=== PATIENT | male | born 1995 | race Caucasian/White ===

== ENCOUNTER 2018-11-05 20:16 | Emergency (ER) | payer MEDICAID ==
[~2018-11-05] VITALS: Ht 182.9 cm; Wt 67.2 kg
[2018-11-05] MEDS ORDERED: cloNIDine HCL 0.1 MG TAB PO ONE ×2 (21:00)
[2018-11-05] MEDS ORDERED: ONDANSETRON HCL 4 MG/2 ML VIAL IV ONE (21:00)
[2018-11-05] MEDS ORDERED: ACETAMINOPHEN 325 MG TAB PO ONE ×2 (21:00)
[2018-11-05 21:17] LABS: Basophils # (auto) 0.1 uL; Basophils % (auto) 1.2 % (0.0-2.0); Eosinophils # (auto) 0.3 uL; Eosinophils % (auto) 6.7 % (0.0-7.0); Hematocrit 41.4 % (41.0-53.0); Hemoglobin 14.1 g/dL (13.5-17.5); Lymphocytes # (auto) 1.5 uL; Lymphocytes % (auto) 31.6 % (10.0-50.0); Mean Corpuscular Hemoglobin 29.7 pg (28.0-32.0); Mean Corpuscular Volume 87.4 fL (80.0-100.0); Monocytes # (auto) 0.5 uL; Monocytes % (auto) 11.2 % (0.0-12.0); Neutrophils # (auto) 2.3 uL; Neutrophils % (auto) 49.3 % (37.0-80.0); Nucleated Red Blood Cells % 0.2 %; Platelet Count (auto) 182 10^3/uL (140-450); Red Blood Cells 4.74 10^6/uL (4.5-5.90); Red Cell Distribution Width 14.3 % (11.8-14.3); White Blood Cell 4.7 10^3/uL (4.4-10.8)
[2018-11-05] MEDS ORDERED: LABETALOL HCL 5 MG/ML ML 20ML VIAL IV ONE (21:30)
[2018-11-05 21:36] LABS: Alanine Aminotransferase 11 U/L (16-61); Albumin 3.9 g/dL (3.4-5.0); Anion Gap 10 (5-15); Blood Urea Nitrogen 18 mg/dL (7-18); Carbon Dioxide 28 mmol/L (21-32); Chloride 102 mmol/L (98-107); Glucose 98 mg/dL (74-106); Magnesium 2.4 mg/dL (1.6-2.6); Potassium 3.8 mmol/L (3.5-5.1); Sodium 140 mmol/L (136-145)
[2018-11-05 21:41] LABS: Alkaline Phosphatase 139 U/L (45-117); Aspartate Aminotransferase 13 U/L (15-37); BUN/Creatinine Ratio 2.9; Bilirubin, Total 0.6 mg/dL (0.2-1.0); GFR African American 15 mL/min; GFR Non-African American 12 mL/min; Total Protein 7.3 g/dL (6.4-8.2)
[2018-11-05 21:44] LABS: INR 1.12 (0.9-1.15); Partial Thromboplastin Time 35.1 sec (23.64-32.05)
[2018-11-05] MEDS ORDERED: MORPHINE SULFATE 4 MG/ML SYR/VIAL IV ONE (22:45)
[2018-11-05] MEDS ORDERED: PIPERACILLIN-TAZOB 3.375GM 100 ML IV ONE (22:45)
[2018-11-05] MEDS ORDERED: PROMETHAZINE HCL 25 MG/ML 1ML IV ONE (23:00)
[2018-11-06] MEDS ORDERED: hydrALAZINE HCL 20 MG/ML VL IV ONE
[2018-11-06 00:37] VITALS: BP 155/94
== END 2018-11-06 00:53 | disposition short-term general hospital (02) ==
LOC: ER 20:18
DX: I16.0 Hypertensive urgency (principal); K35.80 Unspecified acute appendicitis; G40.909 Epilepsy, unspecified, not intractable, without status epilepticus; E11.22 Type 2 diabetes mellitus with diabetic chronic kidney disease; I12.0 Hypertensive chronic kidney disease with stage 5 chronic kidney disease or end stage renal disease; N18.6 End stage renal disease; Z99.2 Dependence on renal dialysis; Z88.5 Allergy status to narcotic agent; Z88.8 Allergy status to other drugs, medicaments and biological substances; Z86.73 Personal history of transient ischemic attack (TIA), and cerebral infarction without residual deficits
CPT/HCPCS: 36415; 70450; 71045; 74176; 80053; 83735; 83880; 84484; 85025; 85610; 85730; 87040; 93005; 94761; 96365; 96375; 99285; J0360; J2270; J2405; J2543; J2550

== ENCOUNTER 2018-11-15 06:46 | Inpatient (IN) | payer MEDICAID ==
[~2018-11-15] VITALS: Ht 182.9 cm; Wt 67.2 kg
[2018-11-15] MEDS ORDERED: MORPHINE SULFATE 4 MG/ML SYR/VIAL IV ONE (07:30)
[2018-11-15] MEDS ORDERED: hydrALAZINE HCL 20 MG/ML VL IV ONE (07:30)
[2018-11-15] MEDS ORDERED: ONDANSETRON HCL 4 MG/2 ML VIAL ONE (07:56)
[2018-11-15] MEDS ORDERED: ONDANSETRON HCL 4 MG/2 ML VIAL IV ONE (08:00)
[2018-11-15 08:18] LABS: Basophils # (auto) 0.1 uL; Basophils % (auto) 2.2 % (0.0-2.0); Eosinophils # (auto) 0.5 uL; Eosinophils % (auto) 11.7 % (0.0-7.0); Hematocrit 42.3 % (41.0-53.0); Hemoglobin 13.9 g/dL (13.5-17.5); Lymphocytes # (auto) 1.4 uL; Lymphocytes % (auto) 32.8 % (10.0-50.0); Mean Corpuscular Hemoglobin 29.1 pg (28.0-32.0); Mean Corpuscular Hgb Conc. 32.9 g/dL (32.0-36.0); Mean Corpuscular Volume 88.5 fL (80.0-100.0); Monocytes # (auto) 0.4 uL; Monocytes % (auto) 10.2 % (0.0-12.0); Neutrophils # (auto) 1.9 uL; Neutrophils % (auto) 43.1 % (37.0-80.0); Nucleated Red Blood Cells % 0.2 %; Platelet Count (auto) 140 10^3/uL (140-450); Red Blood Cells 4.78 10^6/uL (4.5-5.90); Red Cell Distribution Width 13.5 % (11.8-14.3); White Blood Cell 4.3 10^3/uL (4.4-10.8)
[2018-11-15 08:42] LABS: Albumin 3.9 g/dL (3.4-5.0); Anion Gap 9 (5-15); Blood Urea Nitrogen 18 mg/dL (7-18); Calcium 8.2 mg/dL (8.5-10.1); Carbon Dioxide 25 mmol/L (21-32); Chloride 106 mmol/L (98-107); Glucose 102 mg/dL (74-106); Magnesium 2.3 mg/dL (1.6-2.6); Potassium 4.2 mmol/L (3.5-5.1); Sodium 140 mmol/L (136-145)
[2018-11-15 08:44] LABS: Alanine Aminotransferase 15 U/L (16-61); Aspartate Aminotransferase 15 U/L (15-37); BUN/Creatinine Ratio 2.8; GFR African American 14 mL/min; GFR Non-African American 12 mL/min
[2018-11-15 08:46] LABS: Alkaline Phosphatase 110 U/L (45-117); Bilirubin, Total 0.5 mg/dL (0.2-1.0); Total Protein 7.1 g/dL (6.4-8.2)
[2018-11-15 09:02] LABS: INR 1.04 (0.9-1.15)
[2018-11-15] MEDS ORDERED: LABETALOL HCL 5 MG/ML ML 20ML VIAL IV ONE (10:15)
[2018-11-15] MEDS ORDERED: LABETALOL HCL 200 MG TAB PO ONE (10:15)
[2018-11-15] MEDS ORDERED: LACTULOSE 20Gm/30ML SOLN PO PRN (10:15)
[2018-11-15] MEDS ORDERED: TEMAZEPAM 15 MG CAP PO PRN (10:15)
[2018-11-15] MEDS ORDERED: traMADol HCL 50 MG TAB PO PRN (10:15)
[2018-11-15] MEDS ORDERED: MORPHINE SULF INJ 2 MG/ML SYRINGE 1ML IV PRN (10:15)
[2018-11-15] MEDS ORDERED: PROMETHAZINE HCL 25 MG/ML 1ML IV PRN (10:15)
[2018-11-15] MEDS ORDERED: ACETAMINOPHEN 500 MG TAB PO PRN (10:15)
[2018-11-15] MEDS ORDERED: NITROGLYCERIN 0.4 MG SL TAB SL PRN (10:15)
[2018-11-15] MEDS ORDERED: FUROSEMIDE 40 MG/4 ML VIAL IV ONE (10:15)
--- NOTE | 2018-11-15 11:01 | NUR ---
[facility] after SBAR received. Patient oriented to BOBBY FOX,primary RN AND CANDE ANDRES SECONDARY RN PRECEPTING AMARA ROSALES UNIT ROOM 286A, and unit policies regarding patient care and visiting hours. Patient weighed by bedscale and encouraged to call if they need something. All questions and concerns addressed, patient verbalized understanding. FAMILY AT BEDSIDE. Addendum: 11/15/18 at 1552 by BOBBY FOX RN RN CORRECTED UNIT ARRIVAL TIME- 12:03 NOT 11:01
[2018-11-15] MEDS ORDERED: TOPI50TA53 PO (11:06)
[2018-11-15] MEDS ORDERED: TACR1GRA PO (11:06)
[2018-11-15] MEDS ORDERED: NIFE90TA30 PO (11:06)
[2018-11-15] MEDS ORDERED: FOLI1TAB6 PO (11:06)
[2018-11-15] MEDS ORDERED: PANT40TA2 PO (11:06)
[2018-11-15] MEDS ORDERED: PRE5T PO (11:06)
[2018-11-15] MEDS ORDERED: LABE200T18 PO (11:06)
[2018-11-15] MEDS ORDERED: ACET250T3 PO (11:06)
[2018-11-15] MEDS ORDERED: GABA300C10 PO (11:06)
[2018-11-15] MEDS ORDERED: SPIR50TA5 PO (11:06)
[2018-11-15] MEDS ORDERED: MAGN400T5 PO (11:06)
[2018-11-15] MEDS ORDERED: MIN25T PO (11:06)
[2018-11-15] MEDS ORDERED: LOSA-69 PO (11:06)
[2018-11-15] MEDS ORDERED: ISOS20TA56 PO (11:06)
[2018-11-15] MEDS ORDERED: KETOROLAC TROMETH 30 MG/ML 1ML VIAL IV ONE (11:15)
[2018-11-15] MEDS ORDERED: LOSARTAN POTASSIUM 50 MG TAB PO ONE (11:45)
[2018-11-15] MEDS ORDERED: FOLIC ACID 1 MG TAB PO ONE (11:45)
[2018-11-15] MEDS ORDERED: MINOXIDIL 2.5 MG TAB PO ONE (11:45)
[2018-11-15] MEDS ORDERED: GABAPENTIN 300 MG CAP PO ONE (11:45)
[2018-11-15] MEDS ORDERED: PANTOPRAZOLE 40 MG TAB PO ONE (11:45)
[2018-11-15] MEDS ORDERED: TOPIRAMATE 25 MG TAB PO ONE (11:45)
[2018-11-15] MEDS ORDERED: predniSONE 5 MG TAB PO ONE (11:45)
[2018-11-15] MEDS ORDERED: NIFEdipine ER 30 MG TAB PO ONE (11:45)
[2018-11-15 12:25] VITALS: BP 196/124
[2018-11-15] MEDS: MORPHINE SULFATE 4 MG/ML SYR/VIAL IV PRN ×3 (12:52→22:14)
[2018-11-15] MEDS: NIFEdipine ER 30 MG TAB PO SCH (12:56)
[2018-11-15] MEDS: TOPIRAMATE 25 MG TAB PO SCH ×2 (12:56→20:50)
[2018-11-15 13:34] VITALS: BP 169/99
[2018-11-15 13:35] VITALS: BP 138/79
[2018-11-15 13:44] VITALS: BP 169/99
[2018-11-15] MEDS ORDERED: LABETALOL HCL 200 MG TAB PO SCH ×2 (14:00→22:00)
[2018-11-15] MEDS: ISOSORBIDE DINITRATE 10 MG TAB PO SCH ×2 (14:23→20:49)
[2018-11-15] MEDS: LABETALOL HCL 200 MG TAB PO SCH ×3 (14:25→22:00)
[2018-11-15] MEDS: TACROLIMUS 1 MG CAP PO SCH ×2 (14:26→22:04)
[2018-11-15] MEDS: MAGNESIUM OXIDE 400 MG TAB PO SCH ×2 (14:29→20:51)
[2018-11-15] MEDS: SODIUM CHLOR 0.9% PF (SALINE LOCK) 10ML VIAL/SYR IV SCH ×2 (14:30→22:03)
[2018-11-15 16:59] VITALS: BP 122/69
--- NOTE | 2018-11-15 18:20 | NUR ---
CLOSING SHIFT NOTE: PATIENT RESTING IN BED. VS WNL. PATIENT C/O PAIN 10/20. WILL MEDICATE ORDERED. PATIENT HAS CALL LIGHT WITHIN REACH AND VERBALIZED UNDERSTANDING ON USE IF IN NEED OF ANY ASSISTANCE. PATIENT DID NOT EAT DINNER AND STATED 'MY MOM IS GOING TO BRING ME SUBWAY OR SOMETHING FOR DINNER TONIGHT." BED LOCKED AND IN LOWEST POSITION. PATIENT IS UPDATED ON PLAN OF CARE.
--- NOTE | 2018-11-15 19:27 | NUR ---
ENDORSED CARE TO SUSY SAINI RN
[2018-11-15] MEDS: PANTOPRAZOLE 40 MG TAB PO SCH (20:49)
[2018-11-15] MEDS: GABAPENTIN 300 MG CAP PO SCH (20:50)
[2018-11-15 22:00] VITALS: BP_SYST 110; BP_SYST 132; BP_DIAS 66; BP_DIAS 75
[2018-11-15] MEDS ORDERED: LOSARTAN POTASSIUM 50 MG TAB PO SCH (22:00)
[2018-11-15] MEDS ORDERED: MINOXIDIL 2.5 MG TAB PO SCH (22:00)
[2018-11-15] MEDS: acetaZOLAMIDE 250 MG TAB PO SCH (22:04)
--- NOTE | 2018-11-16 00:10 | NUR ---
PAGED HOSPITALIST FOR DONNA, PATIENT IS C/O ITCHING. AWAITING FOR CALL BACK.
[2018-11-16] MEDS ORDERED: diphenhdrAMINE HCL 25 MG CAP PO ONE (01:00)
[2018-11-16 04:44] VITALS: BP 138/77
[2018-11-16] MEDS: ISOSORBIDE DINITRATE 10 MG TAB PO SCH ×2 (05:58→15:54)
[2018-11-16] MEDS: LABETALOL HCL 200 MG TAB PO SCH ×2 (05:58→15:53)
[2018-11-16] MEDS: SODIUM CHLOR 0.9% PF (SALINE LOCK) 10ML VIAL/SYR IV SCH ×2 (06:04→14:52)
[2018-11-16] MEDS: MAGNESIUM OXIDE 400 MG TAB PO SCH ×2 (06:04→15:55)
--- NOTE | 2018-11-16 06:15 | NUR ---
SCHEDULE FOR DIALYSIS IS AT [address] [place] LAW CLERK.
[2018-11-16] MEDS ORDERED: SODIUM CHL 0.9% 1000 ML BAG XX ONE (07:00)
--- NOTE | 2018-11-16 07:45 | NUR ---
OPENING SHIFT NOTE: ENERGY ADVISOR AT BEDSIDE. CHARGE NURSE SUDHA TO MOVE PATIENT TO ROOM 293A FOR BETTER ACCESS/ SETUP FOR ENERGY ADVISOR. PATIENT RESTING IN BED. NO SIGNS OF DISTRESS NOTED. PATIENT REQUESTING JELLO. UPDATED ON PLAN OF CARE, AND WILL CONTINUE TO MONITOR.
[2018-11-16 09:00] VITALS: BP 150/89
--- NOTE | 2018-11-16 09:13 | NUR ---
SPOKE WITH RENAL NURSE REGARDING START TIME. PATIENT CURRENTLY NOT IN ROOM.
[2018-11-16 09:25] LABS: Albumin 3.6 g/dL (3.4-5.0); Potassium 4.4 mmol/L (3.5-5.1)
[2018-11-16 09:27] LABS: BUN/Creatinine Ratio 3.2
[2018-11-16 09:30] LABS: Bilirubin, Total 0.4 mg/dL (0.2-1.0); Total Protein 6.4 g/dL (6.4-8.2)
--- NOTE | 2018-11-16 09:30 | NUR ---
DR. NOÉ MALLOY.
--- NOTE | 2018-11-16 09:40 | NUR ---
PATIENT BACK IN ROOM AFTER AMBULATING IN THE HALLWAYS.
[2018-11-16] MEDS: GABAPENTIN 300 MG CAP PO SCH (09:55)
[2018-11-16] MEDS: acetaZOLAMIDE 250 MG TAB PO SCH (09:55)
[2018-11-16] MEDS: PANTOPRAZOLE 40 MG TAB PO SCH (09:55)
[2018-11-16] MEDS: MORPHINE SULFATE 4 MG/ML SYR/VIAL IV PRN ×2 (09:56→16:32)
[2018-11-16] MEDS: TOPIRAMATE 25 MG TAB PO SCH (09:56)
[2018-11-16] MEDS ORDERED: PANTOPRAZOLE 40 MG TAB PO SCH (10:00)
[2018-11-16] MEDS ORDERED: FOLIC ACID 1 MG TAB PO SCH (10:00)
[2018-11-16] MEDS ORDERED: predniSONE 5 MG TAB PO SCH (10:00)
[2018-11-16] MEDS: TACROLIMUS 1 MG CAP PO SCH (10:52)
[2018-11-16] MEDS ORDERED: diphenhdrAMINE HCL 50 MG/1 ML VL IV ONE (11:45)
--- NOTE | 2018-11-16 11:58 | NUR ---
HEPARIN GIVEN TO DIALYSIS NURSE ORDERED.
--- NOTE | 2018-11-16 12:07 | NUR ---
BENADRYL GIVEN TO SENIOR JAVA ENGINEER ORDERED.
[2018-11-16 13:00] VITALS: BP 159/86
--- NOTE | 2018-11-16 13:20 | NUR ---
DR. DALY AT BEDSIDE. OKAY TO REMOVED PRIOR JAMES OUT OF ABDOMEN. WILL FOLLOW ANY NEW ORDERS DIRECTED.
--- NOTE | 2018-11-16 13:36 | NUR ---
PAGED DR. UMANZOR'S OFFICE REGARDING PATIENTS BLOOD PRESSURE WHILE UNDERGOING DIALYSIS.
--- NOTE | 2018-11-16 13:40 | NUR ---
ELECTROMECHANICAL TECHNICIAN ABLE TO OBTAIN ORDERS REGARDING BLOOD PRESSSURE. WILL FOLLOW DIRECTED.
[2018-11-16] MEDS: MINOXIDIL 2.5 MG TAB PO SCH ×2 (13:43→13:51)
[2018-11-16] MEDS: NIFEdipine ER 30 MG TAB PO SCH (13:43)
[2018-11-16] MEDS: LOSARTAN POTASSIUM 50 MG TAB PO SCH ×2 (13:44→13:50)
--- NOTE | 2018-11-16 13:56 | NUR ---
CALL FROM DR. DALY REGARDING 1400 LABETALOL TO GIVE ORDERED AFTER DIALYSIS.
[2018-11-16 16:02] VITALS: BP 159/86
[2018-11-16 16:20] VITALS: BP 115/89
[2018-11-16 17:00] VITALS: BP 164/88
--- NOTE | 2018-11-16 18:26 | NUR ---
PATIENT DISCHARGED HOME WITH MOTHER AT BEDSIDE. PATIENT EDUCATED ON ALL DISCHARGE MEDICATIONS. HIGHLIGHTED AND CIRCLED BLOOD PRESSURE MEDICATIONS AND FREQUENCY. PATIENT AND MOTHER VERBALIZED UNDERSTANDING. DISCHARGE PACKET AND ALL EDUCATION GIVEN TO PATIENT. PATIENT LEFT WITH ALL BELONGINGS. IV REMOVED, CATHETER INTACT. PRESSURE APPLIED. TEGADERM WITH GAUZE APPLIED TO UMBILICAL STAPLE REMOVAL SITE. VS WNL AND DOCUMENTED IN THE EMR.
--- NOTE | 2018-11-16 18:28 | NUR ---
D/C planning Per SS consult for advance directive information. As requested information was provided to Pt at bed side.
[2018-11-16] MEDS ORDERED: LOSARTAN POTASSIUM 50 MG TAB PO SCH (22:00)
== END 2018-11-16 18:25 | disposition home or self-care (01) | DRG 466 ==
LOC: ER 06:50 → TELE 06:51 → TELE-WESTW 12:02
PROVIDERS: ADMIT Internal Medicine; ATTEND Hospitalist
PROC: 5A1D70Z Performance of Urinary Filtration, Intermittent, Less than 6 Hours Per Day (ICD-10-PCS; principal; 2018-11-16)
DX: T86.11 Kidney transplant rejection (principal); I13.2 Hypertensive heart and chronic kidney disease with heart failure and with stage 5 chronic kidney disease, or end stage renal disease; N17.9 Acute kidney failure, unspecified; I16.0 Hypertensive urgency; I50.9 Heart failure, unspecified; N18.6 End stage renal disease; Y83.0 Surgical operation with transplant of whole organ as the cause of abnormal reaction of the patient, or of later complication, without mention of misadventure at the time of the procedure; H54.61 Unqualified visual loss, right eye, normal vision left eye; F17.200 Nicotine dependence, unspecified, uncomplicated; G40.909 Epilepsy, unspecified, not intractable, without status epilepticus; Z86.73 Personal history of transient ischemic attack (TIA), and cerebral infarction without residual deficits; Y92.89 Other specified places as the place of occurrence of the external cause; Z80.9 Family history of malignant neoplasm, unspecified; Z90.5 Acquired absence of kidney; Z99.2 Dependence on renal dialysis; Z88.8 Allergy status to other drugs, medicaments and biological substances; Z90.49 Acquired absence of other specified parts of digestive tract
CPT/HCPCS: 36415; 71045; 80053; 82306; 82550; 83735; 83880; 83970; 84100; 84484; 85025; 85610; 85730; 90935; 93005; G0378; J1642; J1885; J2405; J7507

== ENCOUNTER 2019-03-22 21:42 | Inpatient (IN) | payer MEDICAID ==
[~2019-03-22] VITALS: Ht 182.9 cm; Wt 77.9 kg
[~2019-03-22 21:42] MED LIST: B-COTAB10 PO; FOLI1TAB6 PO; GABA300C10 PO; ISOS20TA56 PO; LABE200T18 PO; LOSA-69 PO; MIN25T PO; NIFE90TA49 PO; PANT40TA2 PO; PRE5T PO; SEVE800T8 PO; SPIR50TA2 PO; TOPI50TA32 PO
[2019-03-22] MEDS ORDERED: hydrALAZINE HCL 20 MG/ML VL IV ONE (23:30)
[2019-03-22] MEDS ORDERED: cloNIDine HCL 0.1 MG TAB PO ONE (23:30)
[2019-03-22] MEDS ORDERED: LABETALOL HCL 5 MG/ML 4ML SYRINGE IV ONE (23:30)
[2019-03-22] MEDS ORDERED: KETOROLAC TROMETH 30 MG/ML 1ML VIAL IV ONE (23:30)
[2019-03-22] MEDS ORDERED: ONDANSETRON HCL 4 MG/2 ML VIAL IV ONE (23:30)
[2019-03-22 23:31] LABS: Basophils # (auto) 0 uL; Basophils % (auto) 0.8 % (0.0-2.0); Eosinophils # (auto) 0.3 uL; Eosinophils % (auto) 7.6 % (0.0-7.0); Hematocrit 36.2 % (41.0-53.0); Hemoglobin 12.5 g/dL (13.5-17.5); Lymphocytes # (auto) 1.3 uL; Lymphocytes % (auto) 37.8 % (10.0-50.0); Mean Corpuscular Hemoglobin 29.2 pg (28.0-32.0); Mean Corpuscular Hgb Conc. 34.5 g/dL (32.0-36.0); Mean Corpuscular Volume 84.7 fL (80.0-100.0); Monocytes # (auto) 0.3 uL; Monocytes % (auto) 8.7 % (0.0-12.0); Neutrophils # (auto) 1.5 uL; Neutrophils % (auto) 45.1 % (37.0-80.0); Nucleated Red Blood Cells % 0.1 %; Platelet Count (auto) 213 10^3/uL (140-450); Red Blood Cells 4.28 10^6/uL (4.5-5.90); Red Cell Distribution Width 15.5 % (11.8-14.3); White Blood Cell 3.4 10^3/uL (4.4-10.8)
[2019-03-22 23:47] LABS: Alanine Aminotransferase 23 U/L (16-61); Albumin 3.6 g/dL (3.4-5.0); Anion Gap 6 (5-15); Aspartate Aminotransferase 23 U/L (15-37); BUN/Creatinine Ratio 3.2; Blood Urea Nitrogen 19 mg/dL (7-18); Calcium 8.8 mg/dL (8.5-10.1); Carbon Dioxide 28 mmol/L (21-32); Chloride 105 mmol/L (98-107); GFR African American 16 mL/min; GFR Non-African American 13 mL/min; Glucose 94 mg/dL (74-106); Potassium 4.4 mmol/L (3.5-5.1); Sodium 139 mmol/L (136-145)
[2019-03-22 23:53] LABS: Alkaline Phosphatase 93 U/L (45-117); Bilirubin, Total 0.5 mg/dL (0.2-1.0); Total Protein 7.6 g/dL (6.4-8.2)
[2019-03-23] MEDS ORDERED: LABETALOL HCL 5 MG/ML 4ML SYRINGE IV ONE (03:15)
[2019-03-23] MEDS ORDERED: hydrALAZINE HCL 20 MG/ML VL IV ONE (03:15)
[2019-03-23] MEDS ORDERED: cloNIDine HCL 0.1 MG TAB PO ONE (03:15)
[2019-03-23] MEDS ORDERED: ACETAMINOPHEN 325 MG TAB PO PRN (03:30)
[2019-03-23] MEDS ORDERED: MORPHINE SULFATE 4 MG/ML SYR/VIAL IV PRN (03:30)
[2019-03-23] MEDS ORDERED: ONDANSETRON HCL 4 MG/2 ML VIAL IV PRN (03:30)
[2019-03-23] MEDS ORDERED: hydrALAZINE HCL 25 MG TAB PO PRN (03:30)
[2019-03-23] MEDS ORDERED: HYDROcodone-ACET 5/325MG TAB PO PRN (03:30)
[2019-03-23] MEDS ORDERED: LORazepam 0.5 MG TAB PO PRN (03:30)
[2019-03-23] MEDS ORDERED: DOCUSATE SOD 100 MG CAP PO PRN (03:30)
--- NOTE | 2019-03-23 05:25 | NUR ---
Tele[facility] admit from [facility] admitted to Telemetry unit after SBAR received. Patient oriented to Shelly Morales,RN primary RN, unit, room, bed, and unit policies regarding patient care and visiting hours. Patient now on continuous telemetry monitoring, tele box #[id number] and telemetry reading on arrival to unit is NSR. Patient AAOx4, no acute S/S of distress or SOB noted. Pain to head /10. On room air and ambulatory. Seizure precautions in place, padding on bedside rails and suction working properly and at bedside. Patient weighed by bed scale and encouraged to call if they need something. All questions and concerns addressed, patient verbalized understanding. Bed in lowest locked position, side rails up x2, call light within reach. Will continue to monitor every hour and as needed.
[2019-03-23 05:50] VITALS: BP 149/88
--- NOTE | 2019-03-23 05:55 | NUR ---
[facility]SA SWAB SENT TO LAB
[2019-03-23] MEDS: ISOSORBIDE MONONITRATE IR 20 MG TAB PO SCH ×3 (06:03→21:07)
[2019-03-23] MEDS: PANTOPRAZOLE 40 MG TAB PO SCH (06:04)
[2019-03-23] MEDS: LABETALOL HCL 200 MG TAB PO SCH ×3 (06:04→21:08)
[2019-03-23] MEDS ORDERED: HYDR-531 PO (06:10)
[2019-03-23] MEDS ORDERED: MAGN400C2 PO (06:10)
[2019-03-23] MEDS ORDERED: DIPH25TA5 PO (06:10)
[2019-03-23] MEDS ORDERED: FERR1TAB17 PO (06:10)
--- NOTE | 2019-03-23 07:30 | NUR ---
Opening Shift Note Assuming care of patient at this time. Patient is resting in bed with his eyes closed. Patient shows no signs or symptoms of distress or shortness of breath. Bed is locked and lowered with side rails up x2. Will instruct patient on the plan of care for today and to call for assistance as needed. Call light within reach.
[2019-03-23] MEDS: SEVELAMER 800 MG TAB PO SCH ×3 (08:25→17:53)
[2019-03-23 08:51] VITALS: BP 126/64
[2019-03-23] MEDS: TOPIRAMATE 25 MG TAB PO SCH ×2 (09:58→21:09)
[2019-03-23] MEDS: GABAPENTIN 300 MG CAP PO SCH ×2 (09:58→21:08)
[2019-03-23] MEDS: SPIRONOLACTONE 25 MG TAB PO SCH ×2 (09:58→21:09)
[2019-03-23] MEDS: NIFEdipine ER 30 MG TAB PO SCH (09:59)
[2019-03-23] MEDS: FOLIC ACID 1 MG TAB PO SCH (10:00)
[2019-03-23] MEDS: LOSARTAN POTASSIUM 50 MG TAB PO SCH ×2 (10:00→21:09)
[2019-03-23] MEDS: MINOXIDIL 10 MG TAB PO SCH ×2 (10:00→21:09)
[2019-03-23 13:00] VITALS: BP 126/71
[2019-03-23 14:16] LABS: Basophils # (auto) 0 uL; Basophils % (auto) 0.8 % (0.0-2.0); Eosinophils # (auto) 0.3 uL; Eosinophils % (auto) 9.6 % (0.0-7.0); Hematocrit 33.6 % (41.0-53.0); Hemoglobin 11.3 g/dL (13.5-17.5); Lymphocytes # (auto) 1.2 uL; Lymphocytes % (auto) 37.2 % (10.0-50.0); Mean Corpuscular Hemoglobin 28.4 pg (28.0-32.0); Mean Corpuscular Hgb Conc. 33.5 g/dL (32.0-36.0); Mean Corpuscular Volume 84.9 fL (80.0-100.0); Monocytes # (auto) 0.4 uL; Monocytes % (auto) 10.9 % (0.0-12.0); Neutrophils # (auto) 1.4 uL; Neutrophils % (auto) 41.5 % (37.0-80.0); Nucleated Red Blood Cells % 0.1 %; Platelet Count (auto) 248 10^3/uL (140-450); Red Blood Cells 3.96 10^6/uL (4.5-5.90); Red Cell Distribution Width 15.5 % (11.8-14.3); White Blood Cell 3.3 10^3/uL (4.4-10.8)
[2019-03-23 14:28] LABS: BUN/Creatinine Ratio 3.9; Potassium 4.6 mmol/L (3.5-5.1)
[2019-03-23 16:46] VITALS: BP 132/68
--- NOTE | 2019-03-23 19:17 | NUR ---
Closing Shift Note Patient resting in bed. No distress noted. Report given. Will endorse care to the rn shift mgr RN.
[2019-03-23 21:46] VITALS: BP 148/68
--- NOTE | 2019-03-23 23:13 | NUR ---
PATIENT HAS ORDER FOR DISCHARGE TODAY, PATIENT UNABLE TO GO HOME TODAY DUE TO NO TRANSPORTATION TONIGHT. PATIENT VERBALIZED PREFERENCE TO GO HOME IN AM, DR. ZUNIGA AT BEDSIDE AND IS AWARE.
[2019-03-24 04:52] VITALS: BP 153/71
[2019-03-24] MEDS: ISOSORBIDE MONONITRATE IR 20 MG TAB PO SCH (05:50)
[2019-03-24] MEDS: LABETALOL HCL 200 MG TAB PO SCH (05:51)
[2019-03-24] MEDS: PANTOPRAZOLE 40 MG TAB PO SCH (05:51)
--- NOTE | 2019-03-24 07:30 | NUR ---
Opening Note Received report from film processing shift supervisor RN. Patient is resting in bed with eyes closed. No signs or symptoms of distress noted at this time. Patient is on room air, respirations even and unlabored. Bed in low and locked position, call light within reach. Will continue to monitor Q1 hour and PRN.
[2019-03-24] MEDS: SEVELAMER 800 MG TAB PO SCH ×2 (08:00→12:00)
[2019-03-24 09:00] VITALS: BP 151/88
[2019-03-24] MEDS: MINOXIDIL 10 MG TAB PO SCH (10:00)
[2019-03-24] MEDS: FOLIC ACID 1 MG TAB PO SCH (10:12)
[2019-03-24] MEDS: SPIRONOLACTONE 25 MG TAB PO SCH (10:12)
[2019-03-24] MEDS: LOSARTAN POTASSIUM 50 MG TAB PO SCH (10:12)
[2019-03-24] MEDS: GABAPENTIN 300 MG CAP PO SCH (10:12)
[2019-03-24] MEDS: TOPIRAMATE 25 MG TAB PO SCH (10:12)
[2019-03-24] MEDS: NIFEdipine ER 30 MG TAB PO SCH (10:13)
[2019-03-24 10:30] VITALS: BP 151/88
[2019-03-24 13:00] VITALS: BP 157/85
--- NOTE | 2019-03-24 13:25 | NUR ---
Discharge Discharge instructions given as ordered. Encourage to follow up with PMD as instructed. All questions and concerns addressed. Patient verbalized understanding. Medication reconciliation form completed and copy given to patient. IV removed, catheter intact, pressure dressing applied. Telemetry unit returned to ICU. Patient refused wheelchair, patient ambulated to personal vehicle with all personal belongings, accompanied by family. No signs or symptoms of distress noted at this time.
--- NOTE | 2019-03-25 10:58 | NUR ---
Cement Crusher Operator- No call or paged received regarding this consult for frequent admissions. Patient is already discharged; unable to refer to the SWII for review.
== END 2019-03-24 13:25 | disposition home or self-care (01) | DRG 199 ==
LOC: EDBD 21:42 → ER 21:42 → TELE 21:43 → TELE-WESTW 03-23 05:23
PROVIDERS: ADMIT Hospitalist; ATTEND Hospitalist
DX: I16.1 Hypertensive emergency (principal); T86.11 Kidney transplant rejection; N18.6 End stage renal disease; N25.81 Secondary hyperparathyroidism of renal origin; I12.0 Hypertensive chronic kidney disease with stage 5 chronic kidney disease or end stage renal disease; G40.909 Epilepsy, unspecified, not intractable, without status epilepticus; D72.819 Decreased white blood cell count, unspecified; Y83.8 Other surgical procedures as the cause of abnormal reaction of the patient, or of later complication, without mention of misadventure at the time of the procedure; D63.8 Anemia in other chronic diseases classified elsewhere; Z82.49 Family history of ischemic heart disease and other diseases of the circulatory system; Z86.73 Personal history of transient ischemic attack (TIA), and cerebral infarction without residual deficits; Z99.2 Dependence on renal dialysis; Z80.3 Family history of malignant neoplasm of breast; Y83.0 Surgical operation with transplant of whole organ as the cause of abnormal reaction of the patient, or of later complication, without mention of misadventure at the time of the procedure
CPT/HCPCS: 36415; 80048; 80053; 83880; 84484; 85025; 87081; 93005; 96374; 96375; G0378; J1885; J2405

== ENCOUNTER 2019-04-29 22:55 | Inpatient (IN) | payer MEDICAID ==
[~2019-04-29] VITALS: Ht 182.9 cm; Wt 68.9 kg
[~2019-04-29 22:55] MED LIST changes: -B-COTAB10 PO; +DIPH25TA5 PO; +FERR1TAB17 PO; +HYDR-531 PO; +MAGN400C2 PO; -PANT40TA2 PO; -SPIR50TA2 PO
[2019-04-29] MEDS ORDERED: LABETALOL HCL 5 MG/ML 4ML SYRINGE IV ONE (23:30)
[2019-04-29 23:48] LABS: Basophils # (auto) 0 uL; Basophils % (auto) 1.4 % (0.0-2.0); Eosinophils # (auto) 0.1 uL; Eosinophils % (auto) 4.1 % (0.0-7.0); Hematocrit 33.3 % (41.0-53.0); Hemoglobin 11.3 g/dL (13.5-17.5); Lymphocytes # (auto) 0.7 uL; Lymphocytes % (auto) 28.7 % (10.0-50.0); Mean Corpuscular Hemoglobin 28.8 pg (28.0-32.0); Mean Corpuscular Hgb Conc. 33.8 g/dL (32.0-36.0); Mean Corpuscular Volume 85.2 fL (80.0-100.0); Monocytes # (auto) 0.3 uL; Neutrophils # (auto) 1.4 uL; Neutrophils % (auto) 54.8 % (37.0-80.0); Nucleated Red Blood Cells % 0.4 %; Platelet Count (auto) 151 10^3/uL (140-450); Red Blood Cells 3.91 10^6/uL (4.5-5.90); Red Cell Distribution Width 15.9 % (11.8-14.3); White Blood Cell 2.5 10^3/uL (4.4-10.8)
[2019-04-30 00:06] LABS: Albumin 3.5 g/dL (3.4-5.0); BUN/Creatinine Ratio 2.9; Calcium 8.3 mg/dL (8.5-10.1); Potassium 4.3 mmol/L (3.5-5.1)
[2019-04-30 00:13] LABS: Bilirubin, Total 0.8 mg/dL (0.2-1.0); INR 1.22 (0.9-1.15); Partial Thromboplastin Time 29.4 sec (23.64-32.05); Total Protein 7.1 g/dL (6.4-8.2)
[2019-04-30] MEDS ORDERED: LABETALOL HCL 5 MG/ML 4ML SYRINGE IV ONE (00:45)
[2019-04-30] MEDS ORDERED: MORPHINE SULFATE 4 MG/ML SYR/VIAL IV ONE (02:15)
[2019-04-30] MEDS ORDERED: ONDANSETRON HCL 4 MG/2 ML VIAL IV ONE (02:15)
[2019-04-30] MEDS: NICARDIPINE 25MG/250ML BAG KIT 250 ML IV SCH ×2 (02:18→06:15)
[2019-04-30] MEDS ORDERED: ACETAMINOPHEN 325 MG TAB PO PRN (03:00)
[2019-04-30] MEDS ORDERED: TEMAZEPAM 15 MG CAP PO PRN (03:00)
[2019-04-30] MEDS ORDERED: MORPHINE SULF INJ 2 MG/ML SYRINGE 1ML IV PRN (03:00)
[2019-04-30] MEDS ORDERED: ONDANSETRON HCL 4 MG/2 ML VIAL IV PRN (03:00)
[2019-04-30] MEDS ORDERED: NITROGLYCERIN 0.4 MG SL TAB SL PRN (03:00)
[2019-04-30] MEDS: ISOSORBIDE DINITRATE 10 MG TAB PO SCH ×3 (05:18→17:41)
[2019-04-30] MEDS ORDERED: LABETALOL HCL 200 MG TAB PO SCH ×2 (06:00→22:00)
[2019-04-30] MEDS ORDERED: traMADol HCL 50 MG TAB PO PRN (08:45)
[2019-04-30] MEDS: SEVELAMER 800 MG TAB PO SCH ×3 (09:02→17:41)
[2019-04-30] MEDS ORDERED: TACROLIMUS 1 MG CAP PO SCH (10:00)
[2019-04-30] MEDS ORDERED: PANTOPRAZOLE 40 MG TAB PO SCH (10:00)
[2019-04-30] MEDS ORDERED: LOSARTAN POTASSIUM 50 MG TAB PO SCH (10:00)
[2019-04-30] MEDS ORDERED: TOPIRAMATE 25 MG TAB PO SCH (10:00)
[2019-04-30] MEDS ORDERED: MAGNESIUM OXIDE 400 MG TAB PO SCH (10:00)
[2019-04-30] MEDS ORDERED: predniSONE 5 MG TAB PO SCH (10:00)
[2019-04-30 11:00] VITALS: BP 153/96
[2019-04-30 13:00] VITALS: BP 152/79
[2019-04-30] MEDS ORDERED: NIFEdipine ER 30 MG TAB PO ONE (14:15)
[2019-04-30 17:00] VITALS: BP 180/116
[2019-04-30] MEDS ORDERED: LABETALOL HCL 5 MG/ML 4ML SYRINGE IV PRN (17:15)
[2019-05-01] MEDS ORDERED: SODIUM CHL 0.9% 1000 ML BAG XX ONE (07:00)
[2019-05-01] MEDS ORDERED: NIFEdipine ER 30 MG TAB PO SCH (10:00)
== END 2019-04-30 19:15 | disposition home or self-care (01) | DRG 199 ==
LOC: EDBD 22:55 → ER 22:57 → OVERFLOW 22:58 → TELE-WESTW 04-30 11:33
PROVIDERS: ADMIT Nurse Practitioner; ATTEND Internal Medicine
PROC: 02HV33Z Insertion of Infusion Device into Superior Vena Cava, Percutaneous Approach (ICD-10-PCS; principal; 2019-04-29)
DX: I16.0 Hypertensive urgency (principal); I50.42 Chronic combined systolic (congestive) and diastolic (congestive) heart failure; N18.6 End stage renal disease; G40.909 Epilepsy, unspecified, not intractable, without status epilepticus; D72.819 Decreased white blood cell count, unspecified; I13.2 Hypertensive heart and chronic kidney disease with heart failure and with stage 5 chronic kidney disease, or end stage renal disease; D63.1 Anemia in chronic kidney disease; Z99.2 Dependence on renal dialysis; Z94.0 Kidney transplant status; Z80.3 Family history of malignant neoplasm of breast; Z86.73 Personal history of transient ischemic attack (TIA), and cerebral infarction without residual deficits; Z79.899 Other long term (current) drug therapy; Z88.8 Allergy status to other drugs, medicaments and biological substances; Z91.048 Other nonmedicinal substance allergy status; Z90.49 Acquired absence of other specified parts of digestive tract
CPT/HCPCS: 36415; 71045; 80053; 80320; 83880; 84484; 85025; 85610; 85730; 87081; 93005; 96374; 96375; 96376; 99291; G0378; J2405; J3490; J7507

== ENCOUNTER → 2019-09-19 | Emergency (ER) | payer MEDICAID ==
[~2019-09-19] VITALS: Ht 195.6 cm; Wt 65.8 kg
[~2019-09-19] MED LIST changes: +ACET250T3 PO; +ACETAMINOPHEN 325 MG TAB PO ONE; +ACETAMINOPHEN 500 MG TAB PO ONE; +cefTRIAXone 1GM/50ML D5W 50 ML IV ONE; +cloNIDine HCL 0.1 MG TAB PO ONE
[2019-09-19 14:06] LABS: Basophils # (auto) 0 10 ^3/uL (0-0.2); Basophils % (auto) 0.3 % (0.0-2.0); Eosinophils # (auto) 0.3 10 ^3/uL (0-0.8); Eosinophils % (auto) 4.5 % (0.0-7.0); Hematocrit 32.2 % (41.0-53.0); Lymphocytes # (auto) 0.8 10 ^3/uL (0.4-5.4); Lymphocytes % (auto) 11.2 % (10.0-50.0); Mean Corpuscular Hemoglobin 29.1 pg (28.0-32.0); Mean Corpuscular Hgb Conc. 34.1 g/dL (32.0-36.0); Mean Corpuscular Volume 85.2 fL (80.0-100.0); Monocytes # (auto) 0.9 10 ^3/uL (0-1.3); Monocytes % (auto) 12.1 % (0.0-12.0); Neutrophils # (auto) 5.4 10 ^3/uL (1.6-8.6); Neutrophils % (auto) 71.9 % (37.0-80.0); Platelet Count (auto) 177 10^3/uL (140-450); Red Blood Cells 3.78 10^6/uL (4.5-5.90); Red Cell Distribution Width 15.7 % (11.8-14.3); White Blood Cell 7.5 10^3/uL (4.4-10.8)
[2019-09-19 14:29] LABS: Albumin 3.7 g/dL (3.4-5.0); Calcium 7.6 mg/dL (8.5-10.1); Potassium 4.1 mmol/L (3.5-5.1)
[2019-09-19 14:34] LABS: BUN/Creatinine Ratio 3.7; Bilirubin, Total 0.5 mg/dL (0.2-1.0); Total Protein 7.2 g/dL (6.4-8.2)
[2019-09-19 20:00] VITALS: BP 126/77
== END | disposition home or self-care (01) ==
LOC: EDUNIT# 13:00 → ER 13:20 → EDBD 13:20
DX: J02.0 Streptococcal pharyngitis (principal); R50.9 Fever, unspecified; I12.0 Hypertensive chronic kidney disease with stage 5 chronic kidney disease or end stage renal disease; N18.6 End stage renal disease; Z99.2 Dependence on renal dialysis; Z20.828 Contact with and (suspected) exposure to other viral communicable diseases; Z86.73 Personal history of transient ischemic attack (TIA), and cerebral infarction without residual deficits
CPT/HCPCS: 36415; 71045; 80053; 82728; 83605; 83880; 84484; 85025; 87040; 87804; 87880; 96365; 99284; C9803; J0696; U0003

== ENCOUNTER → 2019-11-01 | Emergency (ER) | payer MEDICAID ==
[~2019-11-01] VITALS: Ht 185.4 cm; Wt 68.0 kg
[~2019-11-01] MED LIST changes: -ACETAMINOPHEN 325 MG TAB PO ONE; -ACETAMINOPHEN 500 MG TAB PO ONE; +LIDOCAINE 2% (LOCAL ANESTH.) PF 5ml SDV ONE; -cefTRIAXone 1GM/50ML D5W 50 ML IV ONE; -cloNIDine HCL 0.1 MG TAB PO ONE; +levoFLOXacin 500 MG TAB PO ONE
[2019-11-01 15:35] VITALS: BP 160/118
== END | disposition home or self-care (01) ==
LOC: ER 13:32
DX: I12.0 Hypertensive chronic kidney disease with stage 5 chronic kidney disease or end stage renal disease (principal); N18.6 End stage renal disease; J18.9 Pneumonia, unspecified organism; Z99.2 Dependence on renal dialysis; Z86.73 Personal history of transient ischemic attack (TIA), and cerebral infarction without residual deficits
CPT/HCPCS: 71046; 99283; J2001

== ENCOUNTER 2020-01-17 18:34 | Emergency (ER) | payer MEDICAID ==
[~2020-01-17] VITALS: Ht 172.7 cm; Wt 74.8 kg
[~2020-01-17 18:34] MED LIST changes: -LIDOCAINE 2% (LOCAL ANESTH.) PF 5ml SDV ONE; -levoFLOXacin 500 MG TAB PO ONE
[2020-01-17] MEDS ORDERED: ONDANSETRON ODT 4 MG TAB PO ONE (22:15)
[2020-01-17] MEDS ORDERED: diphenhdrAMINE HCL 25 MG CAP PO ONE (22:30)
[2020-01-17] MEDS ORDERED: HYDROcodone-ACET 10/325MG TAB PO ONE (22:30)
[2020-01-18] MEDS ORDERED: IOHEXOL 300 MG/ML 100ML BOTTLE IJ ONE (00:11)
[2020-01-18] MEDS ORDERED: METOCLOPRAMIDE HCL 10 MG TAB PO ONE (00:15)
[2020-01-18 00:50] VITALS: BP 101/49
[2020-01-18] MEDS ORDERED: MORPHINE SULF INJ 2 MG/ML SYRINGE 1ML IM ONE (01:00)
== END 2020-01-18 01:19 | disposition home or self-care (01) ==
LOC: ER 18:34 → EDBD 18:34 → ER 01-18 01:19
DX: S39.012A Strain of muscle, fascia and tendon of lower back, initial encounter (principal); S30.1XXA Contusion of abdominal wall, initial encounter; R07.89 Other chest pain; N25.0 Renal osteodystrophy; E11.22 Type 2 diabetes mellitus with diabetic chronic kidney disease; I12.0 Hypertensive chronic kidney disease with stage 5 chronic kidney disease or end stage renal disease; N18.6 End stage renal disease; R51.9 Headache, unspecified; Z99.2 Dependence on renal dialysis; Z86.73 Personal history of transient ischemic attack (TIA), and cerebral infarction without residual deficits; Z88.5 Allergy status to narcotic agent; Z88.1 Allergy status to other antibiotic agents; Z88.8 Allergy status to other drugs, medicaments and biological substances; Z79.899 Other long term (current) drug therapy; V49.59XA Passenger injured in collision with other motor vehicles in traffic accident, initial encounter; Y93.89 Activity, other specified; Y92.488 Other paved roadways as the place of occurrence of the external cause; Y99.8 Other external cause status; Z90.89 Acquired absence of other organs
CPT/HCPCS: 70450; 71250; 72125; 74176; 74177; 99285; Q0162; Q9967

== ENCOUNTER 2021-09-03 20:14 | Emergency (ER) | payer MEDICAID ==
[~2021-09-03] VITALS: Ht 152.4 cm; Wt 67.8 kg
[~2021-09-03 20:14] MED LIST changes: +ISOS20TA5 PO; -ISOS20TA56 PO; -LABE200T18 PO; +LABE200T7 PO
[2021-09-03 23:52] LABS: Red Cell Distribution Width 15.7 % (11.8-14.3)
[2021-09-03 23:54] LABS: Mean Corpuscular Hemoglobin 27.1 pg (28.0-32.0); Mean Corpuscular Hgb Conc. 31.9 g/dL (32.0-36.0); Mean Corpuscular Volume 84.9 fL (80.0-100.0); Red Blood Cells 2.95 10^6/uL (4.5-5.90)
[2021-09-04] LABS: White Blood Cell 1.8 10^3/uL (4.4-10.8)
[2021-09-04 00:01] LABS: Basophils % (manual) 0 (0.0-2.0); Blast Cells 0; Eosinophils % (manual) 0 (0-7); Metamyelocytes % 0; Myelocytes % 0; Promyelocytes % 0; Reactive Lymphocytes 0
[2021-09-04 00:10] LABS: BUN/Creatinine Ratio 2.6; Calcium 8.1 mg/dL (8.5-10.1); Potassium 3.6 mmol/L (3.5-5.1)
[2021-09-04 00:13] LABS: Bilirubin, Total 0.4 mg/dL (0.2-1.0); Total Protein 6.2 g/dL (6.4-8.2)
[2021-09-04 00:28] LABS: Band Neutrophils % (manual) 1; Lymphocytes % (manual) 47 (10.0-50.0); Monocytes % (manual) 8 (0-12)
[2021-09-04] MEDS ORDERED: amLODIPine BESYLATE 5 MG TAB PO ONE (03:45)
[2021-09-04] MEDS ORDERED: hydrALAZINE HCL 20 MG/ML VL IV ONE (10:30)
[2021-09-04] MEDS ORDERED: LABETALOL HCL 5 MG/ML 4ML SYRINGE IV ONE (10:30)
[2021-09-04] MEDS ORDERED: LOSARTAN POTASSIUM 50 MG TAB PO SCH (10:45)
[2021-09-04] MEDS ORDERED: NIFEdipine ER 30 MG TAB PO SCH (10:45)
[2021-09-04] MEDS ORDERED: MINOXIDIL 10 MG TAB PO SCH (10:45)
[2021-09-04] MEDS ORDERED: LABETALOL HCL 200 MG TAB PO SCH ×2 (10:45→22:00)
[2021-09-04] MEDS ORDERED: hydrALAZINE HCL 20 MG/ML VL IV PRN (10:45)
[2021-09-04 11:22] LABS: Basophils # (auto) 0 10 ^3/uL (0-0.2); Eosinophils # (auto) 0 10 ^3/uL (0-0.8); Hemoglobin 8.3 g/dL (13.5-17.5); Lymphocytes # (auto) 0.9 10 ^3/uL (0.4-5.4); Monocytes # (auto) 0.2 10 ^3/uL (0-1.3); Neutrophils # (auto) 0.9 10 ^3/uL (1.6-8.6); Red Blood Cells 3.07 10^6/uL (4.5-5.90)
[2021-09-04 11:24] LABS: Basophils % (auto) 0.8 % (0.0-2.0); Hematocrit 26.1 % (41.0-53.0); Lymphocytes % (auto) 44.9 % (10.0-50.0); Mean Corpuscular Hgb Conc. 31.7 g/dL (32.0-36.0); Mean Corpuscular Volume 85.1 fL (80.0-100.0); Monocytes % (auto) 9.4 % (0.0-12.0); Neutrophils % (auto) 44.9 % (37.0-80.0); Red Cell Distribution Width 15.7 % (11.8-14.3); White Blood Cell 2.1 10^3/uL (4.4-10.8)
[2021-09-04] MEDS ORDERED: CLON0.1T PO (13:14)
[2021-09-04 14:30] VITALS: BP 152/98
== END 2021-09-04 14:35 | disposition admitted as inpatient to this hospital (09) ==
LOC: ER 20:14
DX: D70.9 Neutropenia, unspecified (principal); I13.2 Hypertensive heart and chronic kidney disease with heart failure and with stage 5 chronic kidney disease, or end stage renal disease; N18.6 End stage renal disease; I50.9 Heart failure, unspecified; Z99.2 Dependence on renal dialysis; Z86.73 Personal history of transient ischemic attack (TIA), and cerebral infarction without residual deficits; Z90.49 Acquired absence of other specified parts of digestive tract; Z90.89 Acquired absence of other organs; Z79.899 Other long term (current) drug therapy; Z88.8 Allergy status to other drugs, medicaments and biological substances; Z88.5 Allergy status to narcotic agent; Z91.048 Other nonmedicinal substance allergy status; Z20.822 Contact with and (suspected) exposure to COVID-19
CPT/HCPCS: 36415; 70450; 71045; 80053; 84484; 85007; 85025; 85027; 87426; 93005; 96374; 96375; 99285; J0360; J3490

== ENCOUNTER 2021-10-06 09:50 | Outpatient (CLI) | payer MEDICAID ==
[~2021-10-06] VITALS: Ht 182.9 cm; Wt 67.6 kg
[~2021-10-06 09:50] MED LIST changes: +CLON0.1T PO
[2021-10-06 10:03] LABS: Basophils # (auto) 0 10 ^3/uL (0-0.2); Basophils % (auto) 1.2 % (0.0-2.0); Eosinophils # (auto) 0 10 ^3/uL (0-0.8); Eosinophils % (auto) 0.1 % (0.0-7.0); Hematocrit 26.6 % (41.0-53.0); Hemoglobin 8.5 g/dL (13.5-17.5); Lymphocytes # (auto) 1.1 10 ^3/uL (0.4-5.4); Lymphocytes % (auto) 52.9 % (10.0-50.0); Mean Corpuscular Hemoglobin 27.8 pg (28.0-32.0); Mean Corpuscular Hgb Conc. 32.1 g/dL (32.0-36.0); Mean Corpuscular Volume 86.6 fL (80.0-100.0); Monocytes # (auto) 0.2 10 ^3/uL (0-1.3); Monocytes % (auto) 9.9 % (0.0-12.0); Neutrophils # (auto) 0.8 10 ^3/uL (1.6-8.6); Neutrophils % (auto) 35.9 % (37.0-80.0); Nucleated Red Blood Cells % 0.3 %; Red Blood Cells 3.07 10^6/uL (4.5-5.90); Red Cell Distribution Width 17.4 % (11.8-14.3); White Blood Cell 2.2 10^3/uL (4.4-10.8)
[2021-10-06] MEDS ORDERED: COUMPOW XX (10:24)
[2021-10-06] MEDS ORDERED: CYCL-837 PO (10:24)
[2021-10-06] MEDS ORDERED: CINA30TA2 PO (10:24)
[2021-10-06] MEDS ORDERED: TOPI1CAP23 OR (10:24)
[2021-10-06] MEDS ORDERED: WARF7.5T20 PO (10:24)
[2021-10-06 10:25] LABS: Calcium 6.9 mg/dL (8.5-10.1); Potassium 4.3 mmol/L (3.5-5.1)
[2021-10-06 10:33] LABS: Partial Thromboplastin Time 55.4 sec (24.6-33.4)
[2021-10-06 10:43] LABS: Albumin 3.3 g/dL (3.4-5.0); BUN/Creatinine Ratio 6.1; Bilirubin, Total 0.3 mg/dL (0.2-1.0); Total Protein 6.4 g/dL (6.4-8.2)
[2021-10-06 10:45] LABS: INR 4.06 (0.9-1.15)
== END 2021-10-06 10:58 | disposition home or self-care (01) ==
LOC: LAB 09:50 → EDSTATUS 10-07 11:45
PROVIDERS: ATTEND Internal Medicine Gastroenterology
DX: K92.2 Gastrointestinal hemorrhage, unspecified (principal); Z53.8 Procedure and treatment not carried out for other reasons; I50.9 Heart failure, unspecified; Z86.2 Personal history of diseases of the blood and blood-forming organs and certain disorders involving the immune mechanism; Z82.49 Family history of ischemic heart disease and other diseases of the circulatory system; Z80.3 Family history of malignant neoplasm of breast; Z20.822 Contact with and (suspected) exposure to COVID-19
CPT/HCPCS: 36415; 80053; 85025; 85610; 85730; U0003

== ENCOUNTER 2021-11-02 14:31 | Outpatient (CLI) | payer MEDICAID ==
[~2021-11-02 14:31] MED LIST changes: +CINA30TA2 PO; +CYCL-837 PO; -FERR1TAB17 PO; -ISOS20TA5 PO; -PRE5T PO; +TOPI1CAP23 OR; -TOPI50TA32 PO; +WARF7.5T20 PO
[2021-11-02 14:45] LABS: Basophils # (auto) 0 10 ^3/uL (0-0.2); Eosinophils # (auto) 0 10 ^3/uL (0-0.8); Lymphocytes # (auto) 0.7 10 ^3/uL (0.4-5.4); Mean Corpuscular Hemoglobin 26.3 pg (28.0-32.0); Monocytes # (auto) 0.2 10 ^3/uL (0-1.3); Neutrophils # (auto) 0.4 10 ^3/uL (1.6-8.6)
[2021-11-02 14:47] LABS: Basophils % (auto) 1.6 % (0.0-2.0); Hematocrit 26.4 % (41.0-53.0); Hemoglobin 8.2 g/dL (13.5-17.5); Lymphocytes % (auto) 53.2 % (10.0-50.0); Mean Corpuscular Hgb Conc. 31.2 g/dL (32.0-36.0); Mean Corpuscular Volume 84.3 fL (80.0-100.0); Monocytes % (auto) 15.5 % (0.0-12.0); Neutrophils % (auto) 29.7 % (37.0-80.0); Nucleated Red Blood Cells % 0.2 %; Red Blood Cells 3.13 10^6/uL (4.5-5.90); Red Cell Distribution Width 16.6 % (11.8-14.3)
[2021-11-02 15:01] LABS: INR 1.13 (0.9-1.15); Partial Thromboplastin Time 36.6 sec (24.6-33.4)
[2021-11-02 15:05] LABS: White Blood Cell 1.2 10^3/uL (4.4-10.8)
[2021-11-02 15:28] LABS: Albumin 3.4 g/dL (3.4-5.0); Calcium 7.7 mg/dL (8.5-10.1); Potassium 3.7 mmol/L (3.5-5.1)
[2021-11-02 15:31] LABS: BUN/Creatinine Ratio 3.8; Bilirubin, Total 0.4 mg/dL (0.2-1.0); Total Protein 6.8 g/dL (6.4-8.2)
== END 2021-11-02 15:04 | disposition home or self-care (01) ==
LOC: LAB 14:31 → EDSTATUS 11-04 10:15
PROVIDERS: ATTEND Internal Medicine Gastroenterology
DX: U07.1 COVID-19 (principal); K92.2 Gastrointestinal hemorrhage, unspecified; I13.2 Hypertensive heart and chronic kidney disease with heart failure and with stage 5 chronic kidney disease, or end stage renal disease; N18.6 End stage renal disease; I50.9 Heart failure, unspecified; Z99.2 Dependence on renal dialysis
CPT/HCPCS: 36415; 80053; 85025; 85610; 85730; U0003

== ENCOUNTER 2022-10-14 14:03 | Emergency (ER) | payer MEDICAID ==
[~2022-10-14] VITALS: Ht 182.9 cm; Wt 62.0 kg
[~2022-10-14 14:03] MED LIST changes: +ACET250T20 PO; -ACET250T3 PO; +FOLI-119 PO; -FOLI1TAB6 PO; +GABA-1250 PO; -GABA300C10 PO; -LOSA-69 PO; +LOSA50TA46 PO; -NIFE90TA49 PO; +NIFE90TA75 PO; +WARF-114 PO; -WARF7.5T20 PO
[2022-10-14 15:48] VITALS: BP 107/57; PULSE 120; RESP 16; TEMP 98.8; O2SAT 98
[2022-10-14] MEDS ORDERED: OXYCODONE W/ ACETAMINOPHEN 5/325MG TABLET PO ONE (16:45)
== END 2022-10-14 17:23 | disposition home or self-care (01) ==
LOC: ER 14:03
DX: S92.514A Nondisplaced fracture of proximal phalanx of right lesser toe(s), initial encounter for closed fracture (principal); S92.001A Unspecified fracture of right calcaneus, initial encounter for closed fracture; I11.0 Hypertensive heart disease with heart failure; I50.9 Heart failure, unspecified; Z88.5 Allergy status to narcotic agent; Z88.8 Allergy status to other drugs, medicaments and biological substances; Z79.899 Other long term (current) drug therapy; Z79.01 Long term (current) use of anticoagulants; Z86.73 Personal history of transient ischemic attack (TIA), and cerebral infarction without residual deficits; Z90.49 Acquired absence of other specified parts of digestive tract; Z90.89 Acquired absence of other organs; X58.XXXA Exposure to other specified factors, initial encounter; Y93.89 Activity, other specified; Y92.89 Other specified places as the place of occurrence of the external cause; Y99.8 Other external cause status
CPT/HCPCS: 29515; 73630